=== PATIENT | male | born 2000 | race Caucasian/White ===

== ENCOUNTER 2023-12-25 16:05 | Outpatient (CLI) | payer SELFPAY ==
[2023-12-25 17:08] LABS: Basophils # 0.1 K/mm3 (0-0.2); Basophils % 1.1 % (0.1-2.0); Eosinophils # 0.2 K/mm3 (0.0-0.4); Eosinophils % 4.1 % (0.1-12.0); Hematocrit 45.9 % (42.0-52.0); Hemoglobin 15.3 g/dL (14.1-18.0); Lymphocytes # 2.2 K/mm3 (0.7-4.5); Lymphocytes % 39.1 % (10-50); Mean Corpuscular HGB Conc 33.3 g/dL (31.8-35.4); Mean Corpuscular Hemoglobin 31.5 pg (27.0-31.2); Mean Corpuscular Volume 94.6 fl (80-94); Mean Platelet Volume 8.6 fl (7.4-10.4); Monocytes # 0.3 K/mm3 (0.1-1.0); Monocytes % 5.4 % (1.7-9.3); Neutrophils # 2.8 K/mm3 (1.8-7.8); Neutrophils % 50.3 % (37.0-80.0); Platelet Count 254 K/mm3 (142-424); Red Blood Count 4.85 M/mm3 (4.60-6.20); White Blood Count 5.6 K/mm3 (4.8-10.8)
[2023-12-25 17:31] LABS: Chloride 104 mmol/L (98-107)
[2023-12-25 17:32] LABS: Potassium 4.3 mmoL/L (3.5-5.1); Sodium 137 mmol/L (136-145)
[2023-12-25 17:34] LABS: Blood Urea Nitrogen 15 mg/dl (9-20); Estimated Glomerular Filt Rate 103 ml/min (>60); GFR (African American) 124 ML/MIN (>60)
[2023-12-25 17:35] LABS: Alanine Aminotransferase 35 U/L (12-78); Albumin Level 3.7 g/dl (3.5-5.0); Alkaline Phosphatase 66 U/L (38-126); Anion Gap 7.3 mEq/L (5-15); Aspartate Amino Transferase 33 U/L (17-59); Bilirubin,Direct 0.2 mg/dl (0.0-0.4); Bilirubin,Total 0.2 mg/dl (0.2-1.3); Calcium 9.4 mg/dl (8.4-10.2); Carbon Dioxide 30 mmol/L (22.0-30.0); Cholesterol 202 mg/dl (140-200); Glucose 93 mg/dl (74-100); Total Protein,Serum 5.8 g/dl (6.3-8.2); Triglycerides 338 mg/dl (30-150); VLDL Cholesterol 68 mg/dL (0-40)
[2023-12-25 17:36] LABS: Chol/HDL Ratio 4.8 (1-3.5); HDL Cholesterol 42 mg/dl (40-60)
[2023-12-25 17:52] LABS: Free T4 (Free Thyroxine) 0.95 ng/dl (0.78-2.19)
[2023-12-25 17:53] LABS: Direct LDL Cholesterol 101.75 mg/dL (100-129)
[2023-12-25 18:07] LABS: Thyroid Stimulating Hormone 2.07 uIU/mL (0.465-4.68)
== END 2023-12-25 23:59 ==
LOC: LAB 16:08
PROVIDERS: Visit Provider Internal Medicine
DX: R06.09 Other forms of dyspnea (principal); R00.2 Palpitations; R07.89 Other chest pain
CPT/HCPCS: 36415; 80048; 80061; 80076; 84439; 84443; 85025; 93225

== ENCOUNTER 2024-01-18 10:08 | Outpatient (CLI) | payer SELFPAY ==
--- NOTE | 2024-01-18 10:08 | CA_ITS ---
APPROVED REPORT EXAM: Comprehensive 2D, Doppler, and color-flow Echocardiogram [employer] Beautician: Tayler Nuñez RVT Ht: 5 ft 11 in Wt: 208lbs BSA: 2.14 BP: 126/72 mmHg Indications: SOA,CP,PALPS 2D Dimensions LA Volume 33.00 mL LA Volume Index 15.35 mL/m2 (M/F) 16-34 M-Mode Dimensions RVDd 2.42 cm (0.9-2.6) LA Diam 2.71 cm (1.9-4.0) LVDd 4.52 cm (3.5-5.7) LVDs 2.74 cm (3.5-5.7) IVSd 1.14 cm (0.6-1.1) PWd 0.68 cm (0.6-1.1) EF (Teich) 70.00% FS 39.40% EDV (Teich) 93.40 mL TAPSE 1.26 (<1.7) ESV (Teich) 28.00 mL LV Diastology E Decel Time 217 (160-240 msec) E/A Ratio 1.6 Aortic Valve ANIYAH Index 1.39 cm2/m2 AoV Peak Edward. 104.0 (50-130 cm/s) AO Peak GR. 4.40 mmHg AO Mean GR. 2.30 (<5 mmHg) AO VTI 21.1 (18-25 cm) ANIYAH (VTI) 3.06 (2.5-4.5 cm2) Mitral Valve MV E Max Edward. 68.0 (40-130 cm/s) MV A Velocity 42.0 (40-130 cm/s) E/A Ratio 1.63 MV PHT 63.0 ms Pulmonary Valve PV Peak Velocity 73.0 (50-150 cm/s) Tricuspid Valve TR P. Velocity 211.00 cm/s RAP Estimate 10.00 mmHg RVSP 27.90 mmHg Left Ventricle The left ventricle is normal size. The left ventricular systolic function is low normal. There is normal left ventricular wall thickness. There is normal LV segmental wall motion. The left ventricular diastolic function is normal. LVEF is 50%. Right Ventricle Right ventricle is mildly dilated. The right ventricular systolic function is normal. Atria The left atrium size is normal. The right atrium size is normal. There is no Doppler evidence of interatrial shunt. Aortic Valve The aortic valve opens well. There is no aortic valvular stenosis. No aortic regurgitation is present. Mitral Valve The mitral valve is normal in structure. No evidence of mitral valve stenosis. Trace mitral valve regurgitation noted. Tricuspid Valve The tricuspid valve leaflets are thin and pliable. Trace tricuspid regurgitation. RVSP is 20-25 mmHg. Pulmonic Valve The pulmonary valve is normal in structure. Trace pulmonic regurgitation. Great Vessels The aortic root is normal in size. The ascending aorta is normal in size. IVC is normal in size and collapses >50% with inspiration. Pericardium There is no pericardial effusion. Other Information Study Quality: Adequate Conclusion Low normal LV systolic function. Mild RV dilation with normal RV systolic function. No significant valvular stenosis or regurgitation. Electronically signed by : Alesia Iglesias MD 01/18/2024 11:29:47
== END 2024-01-18 23:59 ==
LOC: RT 10:08
PROVIDERS: Visit Provider Internal Medicine
DX: R06.09 Other forms of dyspnea (principal); R07.9 Chest pain, unspecified; R07.89 Other chest pain; R00.2 Palpitations
CPT/HCPCS: 93306